=== PATIENT | female | born 1955 | race Caucasian/White ===

== ENCOUNTER 2022-06-11 11:05 | Outpatient (REF) | payer OTHER, SELFPAY ==
--- NOTE | ~2022-06-11 | XR_ITS ---
EXAMINATION: XR KNEE, LEFT CLINICAL INFORMATION: Effusion COMPARISON: None TECHNIQUE: Four views of the left knee. FINDINGS: There is an acute comminuted transversely oriented fracture through the inferior third of the patella, with fracture fragments displaced/retracted up to 6 mm. No additional fractures. Large knee joint effusion. Prominent soft tissue swelling anterior to the patella and patellar tendon. XR/XR knee LT 4V IMPRESSION: * Acute comminuted transversely oriented fracture through the inferior third of the patella. * Large knee joint effusion.
== END 2022-06-11 11:06 | disposition home or self-care (01) ==
LOC: HO.HMGCX 11:05
PROVIDERS: Visit Provider Nurse Practitioner Family
DX: M25.462 Effusion, left knee (principal); M25.562 Pain in left knee
CPT/HCPCS: 73564

== ENCOUNTER → 2022-06-14 13:32 | Outpatient (BNVA) | payer OTHER, SELFPAY | PROVIDERS: Visit Provider Physician Assistant | DX: Z13.89 Encounter for screening for other disorder (principal) ==

== ENCOUNTER 2022-07-02 06:03 | Outpatient (REF) | payer OTHER, SELFPAY ==
--- NOTE | ~2022-07-02 | XR_ITS ---
EXAMINATION: XR KNEE, LEFT CLINICAL INFORMATION: Pain left knee COMPARISON: X-ray the left knee May 2022 TECHNIQUE: Four views of the left knee. FINDINGS: Displaced transverse fracture through the distal third of the patella unchanged in appearance and alignment. No osseous bridging callus formation noted. No joint effusion. Minimal overlying soft tissue swelling. Surrounding bones joints and soft tissues unremarkable. XR/XR knee LT 2V IMPRESSION: Stable appearance of the fracture of the patella.
== END 2022-07-02 06:04 | disposition home or self-care (01) ==
LOC: HO.HOSX 06:03
PROVIDERS: Visit Provider Physician Assistant
DX: S82.002D Unspecified fracture of left patella, subsequent encounter for closed fracture with routine healing (principal)
CPT/HCPCS: 73560

== ENCOUNTER 2022-07-30 12:41 | Outpatient (REF) | payer OTHER, SELFPAY ==
--- NOTE | ~2022-07-30 | XR_ITS ---
EXAMINATION: XR KNEE, LEFT CLINICAL INFORMATION: Reason for Exam M25.562 - Pain in left knee COMPARISON: Knee radiographs 07/02/2022 TECHNIQUE: 2 views of the knee FINDINGS: Again seen is a displaced intra-articular fracture of the lower third of the patella in unchanged alignment with possible questionable minimal increase in callus formation. Joint spaces are maintained. Trace suprapatellar joint effusion. Soft tissues are unremarkable. XR/XR knee LT 2V IMPRESSION: 1. Again seen is a displaced intra-articular fracture of the lower third of the patella in unchanged alignment with possible questionable minimal increase in callus formation. 2. Trace suprapatellar joint effusion.
== END 2022-07-30 12:42 | disposition home or self-care (01) ==
LOC: HO.HOSX 12:41
PROVIDERS: Visit Provider Physician Assistant
DX: S82.002D Unspecified fracture of left patella, subsequent encounter for closed fracture with routine healing (principal)
CPT/HCPCS: 73560

== ENCOUNTER 2022-09-10 06:20 | Outpatient (REF) | payer OTHER, SELFPAY ==
--- NOTE | ~2022-09-10 | XR_ITS ---
EXAMINATION: XR KNEE, LEFT CLINICAL INFORMATION: Fracture COMPARISON: Previous x-ray most recent 07/30/2022 TECHNIQUE: 2 views of the left knee. FINDINGS: There is a minimally displaced fracture of the inferior patella that appears unchanged. No other fracture is seen. There is increasing osteopenia. The joint spaces are normal. There is no significant joint effusion. XR/XR knee LT 2V IMPRESSION: No change in the minimally displaced fracture of the inferior patella. Increasing osteopenia.
== END 2022-09-10 06:21 | disposition home or self-care (01) ==
LOC: HO.HOSX 06:20
PROVIDERS: Visit Provider Physician Assistant
DX: S82.002D Unspecified fracture of left patella, subsequent encounter for closed fracture with routine healing (principal)
CPT/HCPCS: 73560

== ENCOUNTER 2022-10-04 13:56 | Outpatient (REF) | payer OTHER, SELFPAY ==
--- NOTE | ~2022-10-04 | XR_ITS ---
EXAMINATION: XR KNEE, LEFT CLINICAL INFORMATION: Left knee pain COMPARISON: 09/10/2022 and studies dating back to 06/11/2022. TECHNIQUE: AP and lateral views of the left knee. FINDINGS: There is increased osteopenia about the distal femur and proximal tibia. No acute fracture or dislocation is evident. No significant knee effusion is seen. The fracture at the inferior pole of the patella is still evident with some evidence of bony union. Fracture line is still seen. XR/XR knee LT 2V IMPRESSION: Healing patellar fracture. Progression in osteopenia.
== END 2022-10-04 13:57 | disposition home or self-care (01) ==
LOC: HO.HOSX 13:56
PROVIDERS: Visit Provider Physician Assistant
DX: S82.002D Unspecified fracture of left patella, subsequent encounter for closed fracture with routine healing (principal)
CPT/HCPCS: 73560

== ENCOUNTER 2022-10-25 06:58 | Outpatient (REF) | payer OTHER, SELFPAY ==
--- NOTE | ~2022-10-25 | XR_ITS ---
EXAMINATION: XR KNEE, LEFT CLINICAL INFORMATION: Pain COMPARISON: Multiple prior studies including the 10/04/2022 exam TECHNIQUE: Two views of the left knee. FINDINGS: No significant joint effusion. Healing patellar fracture is again noted without significant distraction. There is diffuse irregularity to the bone marrow suggesting disuse osteopenia. No additional acute fracture or dislocation. XR/XR knee LT 2V IMPRESSION: Healing patellar fracture. No additional acute fracture or dislocation.
== END 2022-10-25 06:59 | disposition home or self-care (01) ==
LOC: HO.HOSX 06:58
PROVIDERS: Visit Provider Physician Assistant
DX: S82.002A Unspecified fracture of left patella, initial encounter for closed fracture (principal)
CPT/HCPCS: 73560

== ENCOUNTER 2022-10-25 13:22 | Outpatient (AMB) | payer OTHER, SELFPAY ==
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
[2022-10-25 13:26] VITALS: BMI 23.3
== END 2022-10-25 14:22 | disposition home or self-care (01) ==
PROVIDERS: Visit Provider Physician Assistant
DX: S82.002D Unspecified fracture of left patella, subsequent encounter for closed fracture with routine healing (principal); V89.2XXD Person injured in unspecified motor-vehicle accident, traffic, subsequent encounter
CPT/HCPCS: 99213

== ENCOUNTER 2022-12-13 05:34 | Outpatient (REF) | payer OTHER, SELFPAY ==
--- NOTE | ~2022-12-13 | XR_ITS ---
EXAMINATION: XR KNEE, LEFT CLINICAL INFORMATION: Pain COMPARISON: 10/25/2022 and prior TECHNIQUE: Two views of the left knee. FINDINGS: Small joint effusion. Redemonstration of healing patellar fracture without significant distraction. Redemonstration of diffuse irregularity of the bone marrow suggestive of diffuse osteopenia. XR/XR knee LT 2V IMPRESSION: Healing patellar fracture.
== END 2022-12-13 05:35 | disposition home or self-care (01) ==
LOC: HO.HOSX 05:34
PROVIDERS: Visit Provider Physician Assistant
DX: S82.002S Unspecified fracture of left patella, sequela (principal)
CPT/HCPCS: 73560

== ENCOUNTER 2022-12-13 12:23 | Outpatient (AMB) | payer OTHER, SELFPAY ==
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
[2022-12-13 12:35] VITALS: BMI 23.3
== END 2022-12-13 13:21 | disposition home or self-care (01) ==
PROVIDERS: Visit Provider Physician Assistant
DX: S82.002D Unspecified fracture of left patella, subsequent encounter for closed fracture with routine healing (principal)
CPT/HCPCS: 99213

== ENCOUNTER 2023-02-07 10:09 | Outpatient (REF) | payer OTHER, SELFPAY | END 2023-02-07 10:10 | disposition home or self-care (01) | LOC: HO.HOSX 10:09 | PROVIDERS: Visit Provider Physician Assistant | DX: Z13.89 Encounter for screening for other disorder (principal) ==